=== PATIENT | female | born 1990 | race Caucasian/White ===

== ENCOUNTER 2022-05-21 04:15 | Emergency (ER) | payer OTHER ==
[~2022-05-21] VITALS: Ht 162.5 cm; Wt 96.2 kg
[2022-05-21 05:51] LABS: BILIRUBIN Negative (Negative); BLOOD Negative (Negative); CLARITY Cloudy (Clear); COLOR Yellow (Yellow); GLUCOSE Negative (Negative); KETONE Trace (Negative); LEUKO ESTERASE Trace (Negative); NITRITE Negative (Negative); PH 5.5 (4.5-8.0); SPECIFIC GRAVITY >= 1.030 (1.001-1.030)
[2022-05-21 06:02] LABS: BACTERIA 1+; EPITHELIAL CELLS 16-20
== END 2022-05-21 06:27 | disposition home or self-care (01) ==
LOC: ED 04:15
PROVIDERS: Emergency Medicine
DX: R10.30 Lower abdominal pain, unspecified (principal); R11.0 Nausea

== ENCOUNTER 2022-06-03 18:24 | Emergency (ER) | payer OTHER ==
[~2022-06-03] VITALS: Ht 162.5 cm; Wt 96.2 kg
[2022-06-03 21:34] LABS: BASO % 0.3 % (0.0-1.0); EOS # 0.2 10*3/uL (0.0-0.4); HEMATOCRIT 40.9 % (37.0-47.0); LYMPH # 3.2 10*3/uL (1.3-4.4); LYMPH % 35.6 % (27.0-41.0); MEAN CORPUSCULAR HGB 27.7 pg (27.0-31.0); MEAN CORPUSCULAR HGB CONC 31.5 g/dl (33.0-37.0); MEAN PLATELET VOLUME 9.6 fl (9.6-12.3); MONO # 0.6 10*3/uL (0.1-1.0); MONO % 6.3 % (3.0-9.0); NEUT % 55.6 % (47.0-73.0); PLATELET COUNT AUTOMATED 338 10*3/uL (130-400); RED BLOOD COUNT 4.65 10*6/uL (4.10-5.10); RED CELL DISTRI WIDTH 13.5 % (0-14.5)
[2022-06-03 21:50] LABS: ALKALINE PHOSPHATASE 93 U/L (45-117); BUN 13 mg/dl (7-24); CHLORIDE 110 mmol/L (98-107); CREATININE 0.69 mg/dL (0.55-1.02); POTASSIUM 3.9 mmol/L (3.5-5.1); SGOT/AST 31 IU/L (3-35); SGPT/ALT 49 U/L (12-78); SODIUM 140 mmol/L (136-145); TOTAL PROTEIN 7.4 gm/dL (6.4-8.2)
[2022-06-03] MEDS ORDERED: NAPROXEN250 MG PO (22:00)
== END 2022-06-03 22:30 | disposition home or self-care (01) ==
LOC: ED 18:24
PROVIDERS: Internal Medicine
DX: R07.9 Chest pain, unspecified (principal)

== ENCOUNTER 2024-01-19 20:59 | Emergency (ER) | payer OTHER ==
[~2024-01-19] VITALS: Ht 162.5 cm; Wt 94.3 kg
[~2024-01-19 20:59] MED LIST: NAPROXEN250 MG PO
[2024-01-19] MEDS ORDERED: Dexamethasone Sodium Phospha 20 MG/5 ML VIAL IM ONE (21:10)
[2024-01-19] MEDS ORDERED: Ketorolac Tromethamine 60 MG/2 ML VIAL IM ONE (21:10)
[2024-01-19] MEDS ORDERED: MELOXICAM15 MG PO (21:48)
[2024-01-19] MEDS ORDERED: CYCLOBENZAPRINE5 M3 PO (21:48)
== END 2024-01-19 21:57 | disposition home or self-care (01) ==
LOC: ED 20:59
DX: M62.830 Muscle spasm of back (principal)